=== PATIENT | male | born 1970 | race Caucasian/White ===

== ENCOUNTER → 2017-01-12 | Outpatient (CLI) | payer MEDICARE, OTHER ==
--- NOTE | 2017-01-12 17:37 | CONS ---
CONSULTATION DATE OF SERVICE: 01/12/2017 46-year-old gentleman has been evaluated in Sleep Center for possible obstructive sleep apnea-hypopnea syndrome. HISTORY OF PRESENT ILLNESS/SLEEP WAKE EVALUATION: Patient usually goes to bed around 9 or 10 pm and after falling asleep he wakes up around midnight, sometimes has difficulties to fall asleep and finally gets out of bed around 6:35. He snores and has episodes of sleepwalking and sleep talking and he has 3 episodes of nocturia during the sleep. No history of hypnagogic hallucinations, sleep paralysis or cataplexy. During the day, he may feel sleepy. [place] Sleepiness Scale is 9. PAST MEDICAL HISTORY: Positive for diabetes and asthma. PAST SURGICAL HISTORY: None. MEDICATIONS: Metformin, albuterol. SOCIAL HISTORY: Positive for smoking about 2 packs a day for 18 years. Alcohol consumption very rarely. FAMILY HISTORY: Positive for asthma. REVIEW OF SYSTEMS: Multiple awakenings from sleep, tiredness and sleepiness during the day. PHYSICAL EXAM: GENERAL gentleman without distress. VITAL SIGNS BP 126/83, HR 104, R 20, height 5 feet 4 inches, weight 278, BMI 47.8. Neck 19-1/2 inches in circumference. Temp 97.7, oxygen saturation at room air 95%. HEENT PERRLA, EOMI, evaluation of oropharynx showed extremely low position of soft palate. NECK Supple, no JVD. Thyroid is not palpable. LUNGS Clear to percussion and to auscultation. Good air exchange. No wheezing or rhonchi. HEART S1, S2 regular. No murmurs, gallops, or rubs. ABDOMEN Obese. Soft and nontender. Bowel sounds are present. No organomegaly appreciated. EXTREMITIES No clubbing or cyanosis. INSTRUMENT OPERATOR Awake, alert, and oriented X3. Cranial nerves 2 to 7 intact. There is no fasciculation or atrophy. noted. No focal deficits observed. IMPRESSION: 1. Snoring, extremely low position of soft palate, multiple awakenings from sleep, excessive daytime sleepiness, wide neck 19-1/2 inches in circumference, obstructive sleep apnea-hypopnea syndrome. 2. Obesity, BMI 47.8. 3. Asthma. 4. Diabetes mellitus. 5. History of sleep walking. 6. History of sleep talking. PLAN: 1. Polysomnography for evaluation of patient's breathing during sleep. 2. CPAP/BiPAP titration if sleep study confirms obstructive sleep apnea-hypopnea syndrome. 3. Preferable position during sleep on the side. 4. No driving if patient feels any sleepiness. Patient is aware of civil and criminal liability for unsafe driving. 5. I will see patient for follow up visit to explain results of testing and following plan. 6. Precautions related to sleep walking, close doors and windows. No access to fire at night. The patient could be a candidate for treatment with clonazepam, but after his sleep apnea will be on control if he will continue sleepwalking. 7. Smoking cessation program. Thank you very much for referring this patient for consultation. Sincerely, Sae aGrza MD, PhD, FAASM Diplomat of [employer] Affiliate Marketing Manager of [facility] [place] PAL[place]IRA / LOWELL: [id number] /
== END ==
LOC: SLEEP 16:13
PROVIDERS: ATTEND Internal Medicine
DX: G47.33 Obstructive sleep apnea (adult) (pediatric) (principal); E66.9 Obesity, unspecified; J45.909 Unspecified asthma, uncomplicated; E11.9 Type 2 diabetes mellitus without complications; Z68.42 Body mass index [BMI] 45.0-49.9, adult; Z79.899 Other long term (current) drug therapy; Z79.84 Long term (current) use of oral hypoglycemic drugs
CPT/HCPCS: 99211

== ENCOUNTER → 2017-04-20 | Outpatient (CLI) | payer MEDICARE ==
--- NOTE | 2017-04-20 19:47 | PN ---
PROGRESS NOTE DATE OF SERVICE: 04/20/2017 This patient is a 47-year-old gentleman who has been followed in the sleep center for treatment of extremely severe obstructive sleep apnea-hypopnea syndrome. Recently the patient had a polysomnogram and CPAP titration, and I discussed results of his sleep studies with the patient in detail. He has extremely severe sleep apnea with apnea- hypopnea index 97.5. He was started on treatment with CPAP. The patient felt better when he started to use his machine during sleep and during the day. I checked his CPAP unit. CPAP pressure is in the range between 5 and 18, average pressure 11.3. Usage is 20/30 nights without any nights more than 4 hours. Average usage time is only 2.1 hours. Leak factor is extremely high at 47 L/minute. Apnea- hypopnea index is 25.5. Total apnea index is 11.5. Central apnea index is 0. [place] Sleepiness Scale today is 7. MEDICATIONS: 1. Metformin. 2. Albuterol. PHYSICAL EXAMINATION: Patient in no distress. VITAL SIGNS: BP 129/92, HR 106, RR 16, weight 263, temperature 97.8, oxygen saturation at room air 93%. HEENT: PERRLA, EOMI. Evaluation of oropharynx showed tongue protrudes midline; extremely low position of soft palate. NECK: Supple. No JVD. Thyroid is not palpable. LUNGS: Clear to percussion and to auscultation. Good air exchange. No wheezing or rhonchi. HEART: S1, S2 regular. No murmurs, gallops or rubs. ABDOMEN: Obese. EXTREMITIES : No clubbing or cyanosis. LEAD RECOVERER: Awake, alert, and oriented X3. Cranial nerves 2 to 7 intact. There is no fasciculation or atrophy. noted. No focal deficits observed. IMPRESSION: 1. Extremely severe obstructive sleep apnea-hypopnea syndrome; apnea-hypopnea index 97.5 with oxygen desaturation to 70.0%. The patient started to use CPAP equipment and feels better. He has a significant leak from the mask. 2. Obesity. 3. Asthma. 4. Diabetes mellitus. 5. History of sleepwalking. No sleepwalking episodes recently. 6. History of sleeptalking. PLAN: 1. Patient will continue to use CPAP equipment every night for the whole night. 2. Losing weight. 3. Sleep hygiene with regular time in bed for at least 8 hours. 4. No driving if feeling any sleepiness. 5. Precautions related to sleepwalking. No sleepwalking episodes recently. 6. We will consider fitting patient with a different style of full-face mask. I will consider Page View. Thank you very much for allowing me to participate in the management of your patient. Sincerely, Sae Garza MD, PhD, FAASM Diplomat of [employer] Dealer Compliance Representative of [facility] [place] MMODL / IJN: [id number] /
== END | disposition home or self-care (01) ==
LOC: SLEEP 16:23
PROVIDERS: ATTEND Internal Medicine
DX: G47.33 Obstructive sleep apnea (adult) (pediatric) (principal); E66.9 Obesity, unspecified; E11.9 Type 2 diabetes mellitus without complications; J45.909 Unspecified asthma, uncomplicated; Z99.89 Dependence on other enabling machines and devices; Z79.84 Long term (current) use of oral hypoglycemic drugs; Z79.51 Long term (current) use of inhaled steroids; Z86.59 Personal history of other mental and behavioral disorders

== ENCOUNTER → 2017-05-25 | Outpatient (CLI) | payer MEDICARE ==
--- NOTE | 2017-05-25 17:24 | PN ---
PROGRESS NOTE DATE OF SERVICE: 05/25/2017 This patient is a 47-year-old gentleman who has been followed in the sleep center for treatment of obstructive sleep apnea-hypopnea syndrome. He has extremely severe sleep apnea with apnea-hypopnea index 97.5. He is on treatment with CPAP at the present time and he is able to use his machine every night and he feels better with the treatment. I checked his CPAP unit. Regimen is on automatic pressure with the range of pressure between 5 and 18. Most of the time pressure is 8.6 cm of water. The patient continues to have a significant leak at 70 L/minute, although his mask already has been changed after the previous visit to a different style. Apnea-hypopnea index is still high at 27.5. Total apnea index is 18.2, central apnea index zero. [place] Sleepiness Scale today is 4. MEDICATIONS: 1. Metformin. 2. Albuterol. PHYSICAL EXAMINATION: GENERAL A pleasant gentleman without distress. VITAL SIGNS: BP 128/87, HR 98, RR 16, height 5 feet 4 inches, weight 263, BMI 45.1, temperature 97.9. HEENT: PERRLA, EOMI. Evaluation of oropharynx showed tongue protrudes midline; extremely low position of soft palate. NECK: Supple. No JVD. Thyroid is not palpable. LUNGS: Clear to percussion and to auscultation. Good air exchange. No wheezing or rhonchi. HEART: S1, S2 regular. No murmurs, gallops or rubs. ABDOMEN: Obese. EXTREMITIES : No clubbing or cyanosis. STONEMASON APPRENTICE: Awake, alert, and oriented X3. Cranial nerves 2 to 7 intact. There is no fasciculation or atrophy. noted. No focal deficits observed. IMPRESSION: 1. Extremely severe obstructive sleep apnea-hypopnea syndrome. Patient demonstrated use of his machine every night but not always for the whole night, benefitting from treatment. 2. Patient continues to have significant leak from his mask, even after the mask was changed. 3. Obesity. 4. Asthma. 5. Diabetes mellitus. 6. History of sleepwalking; no sleepwalking episodes recently. 7. History of sleeptalking. PLAN: 1. Patient will increase time of using CPAP equipment during the night for more than 4 hours. 2. We will try a different mask. I would prefer Page View. 3. Losing weight. 4. Sleep hygiene with regular time in bed for at least 8 hours. 5. No driving if feeling any sleepiness. Thank you very much for allowing me to participate in the management of your patient. Sincerely, Sae Garza MD, PhD, FAASM Diplomat of [employer] Medicine Client Experience Administrator of [facility] [place] MMMIKEL / LOWELL: [id number] /
== END | disposition home or self-care (01) ==
LOC: SLEEP 16:00
PROVIDERS: ATTEND Internal Medicine
DX: G47.33 Obstructive sleep apnea (adult) (pediatric) (principal); E66.9 Obesity, unspecified; J45.909 Unspecified asthma, uncomplicated; E11.9 Type 2 diabetes mellitus without complications; Z87.898 Personal history of other specified conditions; Z99.89 Dependence on other enabling machines and devices; Z79.84 Long term (current) use of oral hypoglycemic drugs; Z79.899 Other long term (current) drug therapy

== ENCOUNTER → 2017-08-03 | Outpatient (CLI) | payer MEDICARE ==
--- NOTE | 2017-08-03 17:05 | PN ---
PROGRESS NOTE DATE OF SERVICE: 08/03/2017 This patient is a 47-year-old gentleman who has been followed in the sleep center for treatment of obstructive sleep apnea-hypopnea syndrome. At present the patient is using a ResMed F20 mask, and he is able to use the machine a little bit better than during his previous visit. Originally he had an extremely severe apnea-hypopnea index of 97.5. I checked his CPAP unit. Range of the pressure is from 5 to 18. Most of the time pressure is 11 cm of water. Usage is 29 out of 30 nights, total 19 out of 30 nights for more than 4 hours. Leak is significantly less than during his last visit, when it was 70 L/minute. Now it is 47 L/minute, but it is still above the range which is necessary to have. Apnea-hypopnea index reading 15.4. On the previous visit it was 27.5, so there is an improvement. [place] Sleepiness Scale is 5. MEDICATIONS: 1. Metformin. 2. Albuterol. PHYSICAL EXAMINATION: GENERAL A pleasant gentleman without distress. VITAL SIGNS: BP 106/72, HR around 100, RR 16, height 5 feet 4 inches, weight 252, BMI 43.2. Patient has lost about 11 pounds since his previous visit. Temperature 97.9, oxygen saturation at room air 94%. HEENT: PERRLA, EOMI. Evaluation of oropharynx showed tongue protrudes midline; extremely low position of soft palate. NECK: Supple. No JVD. Thyroid is not palpable. LUNGS: Clear to percussion and to auscultation. Good air exchange. No wheezing or rhonchi. HEART: S1, S2 regular. No murmurs, gallops or rubs. ABDOMEN: Obese. EXTREMITIES : No clubbing or cyanosis. EDISCOVERY PROJECT MANAGER: Awake, alert, and oriented X3. Cranial nerves 2 to 7 intact. There is no fasciculation or atrophy. noted. No focal deficits observed. IMPRESSION: 1. Extremely severe obstructive sleep apnea-hypopnea syndrome; apnea-hypopnea index 97.5, improved on auto PAP with medium pressure 11 cm of water. Patient sleeps better but at present still has significant leak from the mask, which is again improved compared with the previous visit, and apnea-hypopnea index is still above normal range. 2. Obesity. 3. Asthma. 4. Diabetes mellitus. 5. History of sleepwalking in the past. No episodes of sleepwalking recently. 6. History of sleeptalking. PLAN: 1. Patient will continue to use CPAP equipment every night for the whole night. 2. Prescription to prolong trial period for another 90 days. 3. I would consider trying nasal pillows with a chin strap. 4. Because he has a montgomery, that could be the reason for significant leak from full- face mask. 5. Losing weight. Thank you very much for allowing me to participate in the management of your patient. Sincerely, Sae Garza MD, PhD, FAASM Diplomat of [employer] Medicine Hot Iron Worker of [facility] [place] MMODL / IJN: [id number] /
== END | disposition home or self-care (01) ==
LOC: SLEEP 15:48
PROVIDERS: ATTEND Internal Medicine
DX: G47.33 Obstructive sleep apnea (adult) (pediatric) (principal); E66.9 Obesity, unspecified; J45.909 Unspecified asthma, uncomplicated; E11.9 Type 2 diabetes mellitus without complications; Z99.89 Dependence on other enabling machines and devices; Z79.84 Long term (current) use of oral hypoglycemic drugs; Z79.51 Long term (current) use of inhaled steroids

== ENCOUNTER → 2017-11-02 | Outpatient (CLI) | payer MEDICARE ==
--- NOTE | 2017-11-02 17:18 | SFUN ---
SLEEP CENTER FOLLOW UP NOTE DATE OF SERVICE: 11/02/2017 A 47-year-old gentleman has been followed in Sleep Center for treatment of obstructive sleep apnea-hypopnea syndrome. During the previous visit he had extremely high a leak from the machine 70 L/minute and apnea-hypopnea index reading at that time was 15.4. Today I checked his CPAP unit. Regimen of the pressure 5 to 18 cm of water, automatic regimen, average pressure 13.7, and apnea-hypopnea index 6.7, which is practically normal. The patient is using equipment every night for the whole night. It showed usage is 30/30 nights for more than 4 hours. Average usage 5.3 hours. Leak is still in high range 48 L/minute, but again patient feels better. [place] Sleepiness Scale today is 4, which is normal. MEDICATIONS: Metformin, albuterol. PHYSICAL EXAM: GENERAL Patient in no distress. VITAL SIGNS BP 107/67, HR around 90, RR 16, height 64, weight 248.2, BMI 42.5, temperature 98.5, oxygen saturation room air 94%. HEENT PERRLA, EOMI, evaluation of oropharynx showed Extremely low position of soft palate. NECK Supple, no JVD. Thyroid is not palpable. LUNGS Clear to percussion and to auscultation. Good air exchange. No wheezing or rhonchi. HEART S1, S2 regular. No murmurs, gallops, or rubs. ABDOMEN Obese. Soft and nontender. Bowel sounds are present. No organomegaly appreciated. EXTREMITIES No clubbing or cyanosis. DOCUMENT REVIEW SPECIALIST Awake, alert, and oriented X3. Cranial nerves 2 to 7 intact. There is no fasciculation or atrophy. noted. No focal deficits observed. IMPRESSION: 1. Extremely severe obstructive sleep apnea-hypopnea syndrome apnea-hypopnea index 97.5. Presently the patient demonstrated 100% compliance with treatment benefitting from treatment. 2. Obesity. 3. Asthma. 4. Diabetes mellitus. 5. History of sleepwalking in the past. No recent episodes. 6. History of sleep talking. PLAN: 1. The patient will continue to use CPAP equipment every night for the whole night with the same regimen. 2. Losing weight. 3. Sleep hygiene with regular time in bed for at least 8 hours. 4. No driving if feeling sleepiness. Patient presently does not drive. Thank you very much for allowing me to participate in management of your patient. Sincerely, Sae Garza MD, PhD, FAASM Diplomat of [employer]ties [employer] Medicine Flame Channeler of [facility] [place] PALMIRA / LOWELL: [id number] /
== END | disposition home or self-care (01) ==
LOC: SLEEP 15:51
PROVIDERS: ATTEND Internal Medicine
DX: G47.33 Obstructive sleep apnea (adult) (pediatric) (principal); E66.9 Obesity, unspecified; E11.9 Type 2 diabetes mellitus without complications; J45.909 Unspecified asthma, uncomplicated; Z99.89 Dependence on other enabling machines and devices; Z79.51 Long term (current) use of inhaled steroids; Z79.84 Long term (current) use of oral hypoglycemic drugs; Z87.898 Personal history of other specified conditions; Z68.41 Body mass index [BMI] 40.0-44.9, adult

== ENCOUNTER → 2018-01-15 | Outpatient (CLI) | payer MEDICARE ==
--- NOTE | 2018-01-15 15:08 | XR ---
EXAMINATION TYPE: XR chest 2V DATE OF EXAM: 01/15/2018 COMPARISON: NONE HISTORY: Chest pain TECHNIQUE: Frontal and lateral views of the chest are obtained. FINDINGS: There is no focal air space opacity. Bronchial wall thickening may reflect underlying bronchitis. No evidence for pneumothorax. No pleural effusion. The cardiac silhouette size is enlarged. The osseous structures are grossly intact. IMPRESSION: 1. Correlate with bronchitis.
== END | disposition home or self-care (01) ==
LOC: RADXRMAIN 14:14
PROVIDERS: ATTEND Family Medicine
DX: R09.89 Other specified symptoms and signs involving the circulatory and respiratory systems (principal)
CPT/HCPCS: 71046

== ENCOUNTER → 2018-11-22 | Outpatient (CLI) | payer MEDICARE ==
--- NOTE | 2018-11-22 17:42 | PN ---
PROGRESS NOTE DATE OF SERVICE: 11/22/2018 48-year-old gentleman who has been followed in the Sleep Center for treatment of obstructive sleep apnea-hypopnea syndrome. The patient continued to use CPAP equipment every night for the whole night without problems related to mask fitting, pressure or humidification. No snoring with CPAP. [place] Sleepiness Scale is 3. I checked CPAP unit. CPAP range of the pressure 5-18 cm of water. Average pressure is 8.9 cm of water. Usage is 30/30 nights for more than 4 hours and average usage is 6.8 hours. Leak is quite high, 61 L/minute, but apnea-hypopnea index only 2.4, which is absolutely perfect. MEDICATIONS: Metformin, albuterol. PHYSICAL EXAM: Patient in no distress. VITAL SIGNS: BP 125/73, HR 88, RR 16, height 5 feet 3-1/2 inches, weight 231, temperature 97.7, body mass index 40.2, oxygen saturation at room air 97%. Oropharynx extremely low soft palate, Mallampati 4. Neck Supple, no JVD. Thyroid is not palpable. LUNGS Clear to percussion and to auscultation. Good air exchange. No wheezing or rhonchi. HEART S1, S2 regular. No murmurs, gallops, or rubs. ABDOMEN: Obese. Soft and nontender. Bowel sounds are present. No organomegaly appreciated. EXTREMITIES No clubbing or cyanosis. GUT CARRIER Awake, alert, and oriented X3. Cranial nerves 2 to 7 intact. There is no fasciculation or atrophy. noted. No focal deficits observed. IMPRESSION: 1. Severe obstructive sleep apnea-hypopnea syndrome, apnea-hypopnea index 97.5. The patient demonstrated 100% compliance with treatment. Normal respirations on treatment with CPAP, benefitting from treatment. 2. Obesity. 3. Asthma. 4. Diabetes mellitus. 5. History of sleep walking in the past. No episodes of sleep walking. 6. History of sleep talking. PLAN: 1. Patient will continue to use CPAP equipment every night for the whole night. 2. Losing weight. 3. Sleep hygiene with time in bed for at least 8 hours. 4. No driving if sleepiness. 5. Prescription for all necessary CPAP supplies including mask, tube and filters. 6. Follow-up visit in 1 year or earlier if patient has any problems. Thank you very much for allowing me to participate in management of your patient. Sincerely, Sae Garza MD, PhD, FAASM Diplomat of [employer] Medicine Stitcher Hand of [facility] [place] PALMIRA / LOWELL: [id number] /
== END | disposition home or self-care (01) ==
LOC: SLEEP 14:53
PROVIDERS: ATTEND Internal Medicine
DX: G47.33 Obstructive sleep apnea (adult) (pediatric) (principal); E66.9 Obesity, unspecified; J45.909 Unspecified asthma, uncomplicated; E11.9 Type 2 diabetes mellitus without complications; Z68.41 Body mass index [BMI] 40.0-44.9, adult; Z99.89 Dependence on other enabling machines and devices; Z87.898 Personal history of other specified conditions; Z79.84 Long term (current) use of oral hypoglycemic drugs; Z79.899 Other long term (current) drug therapy

== ENCOUNTER → 2020-11-16 | Outpatient (CLI) | payer MEDICARE ==
--- NOTE | 2020-11-16 14:57 | XR ---
EXAMINATION TYPE: XR chest 2V DATE OF EXAM: 11/16/2020 COMPARISON: 01/15/2018 HISTORY: 50-year-old male R09.89, respiratory crackles TECHNIQUE: Frontal and lateral views FINDINGS: Heart mildly enlarged. Perihilar and interstitial density is noted. Similar to slightly increased fro m prior exam. No eliel consolidation or pleural effusion. IMPRESSION: 1. Mild cardiomegaly. 2. Perihilar and interstitial densities greatest in the mid and lower lungs. Further clinical correla tion recommended for possible mild CHF with pulmonary vascular congestion versus bronchitis, chronic asthma, or atypical pneumonias.
== END | disposition home or self-care (01) ==
LOC: RADXRMAIN 13:33
PROVIDERS: ATTEND Family Medicine
DX: J98.4 Other disorders of lung (principal); I51.7 Cardiomegaly
CPT/HCPCS: 71046